=== PATIENT | female | born 1955 | race Caucasian/White ===

== ENCOUNTER 2019-04-14 21:09 | Emergency (ER) | payer SELFPAY ==
[~2019-04-14] VITALS: Ht 149.9 cm; Wt 52.1 kg
[2019-04-14] MEDS ORDERED: LIDOCAINE HCL/PF 1% 10 MG/ML 5ML VIAL IJ ONE (21:45)
[2019-04-14] MEDS ORDERED: BACITRACIN ZINC OINT UDPKT TOP ONE (21:45)
[2019-04-14] MEDS ORDERED: TETANUS, DIPHTHERIA, PERTUSSIS VAC/PF 0.5ML (>7YR OLD) IM ONE (21:45)
[2019-04-14] MEDS ORDERED: ACETAMINOPHEN 325MG TABLET PO ONE (23:15)
[2019-04-15 00:04] VITALS: BP 125/65
== END 2019-04-15 00:05 | disposition home or self-care (01) ==
LOC: ER 21:09
DX: S61.210A Laceration without foreign body of right index finger without damage to nail, initial encounter (principal); W22.8XXA Striking against or struck by other objects, initial encounter; Y93.89 Activity, other specified; Y92.018 Other place in single-family (private) house as the place of occurrence of the external cause
CPT/HCPCS: 12001; 73140; 90471; 90715; 99283; J3490; Z7610

== ENCOUNTER 2019-04-16 10:00 | Emergency (ER) | payer SELFPAY ==
[~2019-04-16] VITALS: Ht 149.9 cm; Wt 52.0 kg
[2019-04-16 10:06] VITALS: BP 126/55
[2019-04-16] MEDS ORDERED: BACITRACIN 15GM TUBE TOP ONE (10:30)
== END 2019-04-16 11:25 | disposition home or self-care (01) ==
LOC: ER 10:00
DX: S61.210D Laceration without foreign body of right index finger without damage to nail, subsequent encounter (principal); X58.XXXD Exposure to other specified factors, subsequent encounter
CPT/HCPCS: 29130; 99283